=== PATIENT | male | born 1985 | race Caucasian/White ===

== ENCOUNTER → 2021-03-06 | Outpatient (CLI) | payer OTHER ==
--- NOTE | 2021-03-21 08:27 | PF ---
[address] [address] PULMONARY FUNCTION REPORT Name: LUDY EVANS Room: [facility]#: [id number] Admission: 03/06/21 Attend Phys: Hussain Peñajaronyandy Discharge: Date of : 87 Report #: [id number] THIS REPORT FOR: cc: [facility] - Clinic physician unknown [facility] - Clinic physician unknown Melchor Mayers MD ~ DATE OF VISIT: 03/06/2021 Pulmonary function test was performed on 03/06/2021. Only a spirometry was performed. The FEV1/FVC ratio is decreased to 59% with an FVC decreased to 78%. The FEV1 is also decreased to 57%. FEF 25-75 is decreased to 28%. After the administration of a bronchodilator, there is 19% increase in FVC and FEV1 also increases by 47% to a post-bronchodilator FEV1 of 3.52 liters. The FEF 25-75 also increases by 132%. Only a spirometry was performed. IMPRESSION: Moderate obstruction with evidence of reversibility. <ELECTRONICALLY SIGNED> By: Melchor Mayers MD 03/21/21 0827 [id number] Mayers MD /nt
== END ==
LOC: M.PUL 09:46 → M.RAD 09:46 → M.PUL 10:00
PROVIDERS: ATTEND Chiropractor
DX: J44.9 Chronic obstructive pulmonary disease, unspecified (principal); R06.02 Shortness of breath